=== PATIENT | female | born 1960 | race Caucasian/White ===

== ENCOUNTER 2017-05-14 04:47 | Emergency (ER) | payer SELFPAY ==
[~2017-05-14] VITALS: Ht 170.2 cm; Wt 79.4 kg
[~2017-05-14 04:47] MED LIST: ALBUTEROL0.09 MG/A1 INH; AZITHROMYCIN250 MG PO; PREDNISONE50 MG PO
--- NOTE | 2017-05-14 05:10 | ED DYSPNEA/ASTHMA COMPLAINT ---
History of Present Illness General Chief Complaint: Dyspnea (COPD, CHF, Other) Stated Complaint: "UM IM HAVING TROUBLE BREATHING" Source: patient, family Exam Limitations: no limitations Vital Signs & Intake/Output Vital Signs & Intake/Output Vital Signs Date Time Temp Pulse Resp B/P B/P Pulse O2 O2 Flow FiO2 Mean Ox Delivery Rate 05/14 0508 94 Room Air 05/14 0455 97.8 91 24 146/74 94 Room Air Allergies Coded Allergies: NO KNOWN ALLERGIES (08/28/10) Reconcile Medications Albuterol Sulfate (Albuterol Sulfate Hfa) 0.09 MG/Actuation TUNG 2 PUFF INH Q4- 6 PRN PRN SHORTNESS OF BREATH 90 MCG PER PUFF Azithromycin 250 MG TAB 1 TAB PO QDAY BRONCHITIS Prednisone 50 MG TAB 1 TAB PO QDAY BRONCHITIS Triage Note: PT FROM HOME, WOKE UP COUGHING AROUND 2 AM, TOOK BREATHING TX WITHOUT RELIEF AND COULD NOT CATCH BREATH. HX ASTHMA. REPORTS CHEST TIGHTNESS Triage Nurses Notes Reviewed? yes Onset: Gradual Duration: week(s):, constant, continues in ED, getting worse Severity: moderate, severe HPI: Patient presents for evaluation of worsening shortness of breath over the past 2 weeks. Patient states she had a severe coughing episode tonight with extreme shortness of breath prompting her to come to the emergency department for evaluation. She has been using both an MDI and nebulizer at home, roughly 3 times a day each, without improvement. She has had wheezing a cough and a little phlegm production. She denies any associated fever chest pain or leg swelling. Symptoms worsened with exertion. Past History Travel History Traveled to [place] past 21 day No Medical History Any Pertinent Medical History? 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 No Review of Systems Review of Systems Constitutional: Reports: no symptoms. EENTM: Reports: no symptoms. Respiratory: Reports: see HPI. Cardiovascular: Reports: no symptoms. GI: Reports: no symptoms. Genitourinary: Reports: no symptoms. Musculoskeletal: Reports: no symptoms. Skin: Reports: no symptoms. Neurological/Psychological: Reports: no symptoms. Hematologic/Endocrine: Reports: no symptoms. Immunologic/Allergic: Reports: no symptoms. All Other Systems: Reviewed and Negative Physical Exam Physical Exam Respiratory: SEE BELOW Comments: Gen.: Well-nourished, well-developed, no acute respiratory distress. Head: Normocephalic, atraumatic. Eyes: Normal inspection bilaterally Ears: Normal inspection bilaterally Nose: Normal inspection Throat/mouth : Moist mucosa Neck: Supple, full range of motion, no goiter Heart: Regular rate and rhythm, no murmurs rubs or gallops Lungs: Decreased air entry with scattered end expiratory wheezing, no rales or rhonchi Chest: Nontender Back: Normal range of motion Abdomen: Soft, nontender, nondistended, normal bowel sounds Extremities: Normal range of motion grossly, equal radial pulses, no cyanosis clubbing or edema, calves nontender Neurologic: Cranial nerves grossly intact, speech is clear Skin: warm and dry Psychiatric: Calm, cooperative, no apparent delusions or hallucinations Core Measures ACS in differential dx? No CVA/TIA Diagnosis No Sepsis Present: No Sepsis Focused Exam Completed? No Progress Differential Diagnosis: asthma, bronchitis, CHF, COPD, pneumonia Plan of Care: Orders Procedure Date/time Status EKG 05/14 0500 Active Diagnostic Imaging: Discussed w/RAD: Radiology Read. CXR Impression: PATIENT: PINKY LIU PRESENT AGE: 57 PATIENT ACCOUNT NO: [id number] : 58 LOCATION: [facility] ORDERING PHYSICIAN: Jorden Marquez MD SERVICE DATE: 05/14/17 EXAM TYPE: RAD - XRY-PORTABLE CHEST XRAY EXAMINATION: XR PORTABLE CHEST CLINICAL INFORMATION: Wheezing. Cough. COMPARISON: Chest x-ray August 28, 2010 TECHNIQUE: Portable frontal view of the chest was obtained. 6:24 AM FINDINGS: No significant abnormality is noted involving the heart, lungs, mediastinum, bony thorax or soft tissues. IMPRESSION : No acute abnormality of the chest. DICTATED BY: Roberto Carlos Fall MD DATE/TIME DICTATED:05/14/17641 [employer] DATE/TIME TRANSCRIBED:641 CONFIDENTIAL, DO NOT COPY WITHOUT APPROPRIATE AUTHORIZATION. < Electronically signed in Other Vendor System> SIGNED BY: Roberto Carlos Fall MD [id number] Initial ED EKG: none Comments: 05/14/2017 6:08:04 AM Pinky is beginning to feel better. Auscultation of the lungs reveals improved air entry and end expiratory wheezing bilaterally. Departure Departure Disposition: HOME OR SELF CARE Condition: Stable Clinical Impression Primary Impression: Asthma attack Qualifiers: Asthma severity: moderate Asthma persistence: unspecified Qualified Code: J45.901 - Unspecified asthma with (acute) exacerbation Secondary Impressions: Encounter for smoking cessation counseling Referrals: Patient Has No Primary Care Dr (PCP/Family) Additional Instructions: Continue your nebulizer treatments every 6 hours with an inhaler treatment in between if necessary. Prednisone as prescribed. Follow-up with your primary care physician or lung specialist within the next 48 hours. Try to quit smoking entirely. Return if any concerns or sudden worsening. Thank you for choosing the [facility] for your care. It was a pleasure to serve you today. Jorden Marquez M.D. [facility] Departure Forms: Customer Survey General Discharge Information Prescriptions: Current Visit Scripts Prednisone (Deltasone) 3 TAB PO DAILY #12 TAB BEGIN TOMORROW Albuterol Sulfate (Proair Hfa) 2 INH INH Q6P PRN ASTHMA #1 INHAL Albuterol Sulfate 1 Vial INH/MANSI Q6 PRN ASTHMA/WHEEZING #50 Vial Critical Care Note Critical Care Note Critical Care Time: 30-74 min
--- NOTE | 2017-05-14 06:46 | RADIOLOGY REPORT ---
EXAMINATION: XR PORTABLE CHEST CLINICAL INFORMATION: Wheezing. Cough. COMPARISON: Chest x-ray August 28, 2010 TECHNIQUE: Portable frontal view of the chest was obtained. 6:24 AM FINDINGS: No significant abnormality is noted involving the heart, lungs, mediastinum, bony thorax or soft tissues. IMPRESSION: No acute abnormality of the chest.
[2017-05-14] MEDS ORDERED: ALBUTEROL2.5 MG/3 M INH/SOL (07:05)
[2017-05-14] MEDS ORDERED: DELTASONE20 MG PO (07:05)
[2017-05-14] MEDS ORDERED: PROAIR HFA8.5 GM INH (07:05)
[2017-05-14 07:11] VITALS: BP 112/62
== END 2017-05-14 07:12 ==
LOC: ERH 04:47
DX: J45.909 Unspecified asthma, uncomplicated (principal); R07.89 Other chest pain; Z87.891 Personal history of nicotine dependence
CPT/HCPCS: 1263; 71045; 96374; J2930